=== PATIENT | male | born 1960 ===

== ENCOUNTER 2022-01-26 09:24 | Outpatient (CLI) | payer BC, SELFPAY ==
[2022-01-26 14:20] LABS: Chloride* 103 mmol/L (96-114); Potassium* 4.3 mmol/L (3.6-5.1); Sodium* 138 mmol/L (135-149)
[2022-01-26 14:23] LABS: Blood Urea Nitrogen* 20 mg/dL (7-30); Carbon Dioxide* 26 mmol/L (20-32); Creatinine* 0.9 mg/dL (0.5-1.5); Estimated Glomerular Filt Rate 97 ml/min; Glucose* 118 mg/dL (60-115)
[2022-01-26 14:24] LABS: Calcium* 9.8 mg/dL (8.4-10.6)
== END 2022-01-26 09:25 | disposition home or self-care (01) ==
LOC: LKVREF 09:25
PROVIDERS: PCP Family Medicine; Visit Provider Family Medicine
DX: Z01.811 Encounter for preprocedural respiratory examination (principal)
CPT/HCPCS: 80048